=== PATIENT | female | born 1975 | race Caucasian/White ===

== ENCOUNTER 2017-11-12 08:48 | Emergency (ER) | payer MEDICAID ==
[2017-11-12] MEDS ORDERED: Ondansetron INJ* 2 MG/ML VIAL ONE ×2 (09:22)
[2017-11-12] MEDS ORDERED: Ondansetron INJ* 2 MG/ML VIAL IV ONE (09:23)
[2017-11-12 09:24] LABS: ABS Basophils 0 10^3/ul (0-0.2); ABS Eosinophils 0 10^3/ul (0-0.6); ABS Lymphocytes 2.3 10^3/ul (1.0-4.8); ABS Monocytes 0.7 10^3/ul (0-0.8); ABS Neutrophils 3.7 10^3/ul (1.5-7.7); ABS Nucleated RBC 0 10^3/ul; Eosinophil % 0.6 % (0-6); Hematocrit 40 % (35-47); Hemoglobin 13.8 g/dl (12.0-16.0); Lymphocyte % 34.3 % (25-47); Mean Corpuscular HGB Conc 35 g/dl (31-36); Mean Corpuscular Hemoglobin 33 pg (27-31); Mean Corpuscular Volume 94 fL (80-97); Mean Platelet Volume 9.1 um3 (7.4-10.4); Nucleated Red Blood Cells % 0; Platelet Count 200 10^3/ul (150-450); Red Cell Distribution Width 13 % (10.5-15); White Blood Count 6.7 10^3/ul (3.5-10.8)
--- NOTE | 2017-11-12 09:29 | RAD ---
Indication: Chest pain. Single frontal view of the chest performed at 0914 hours was reviewed. Comparison is made with previous exam dated May 05, 2013. No mediastinal shift is noted. Heart is of normal size and configuration. Lung perales appear clear. IMPRESSION: NO ACTIVE CARDIOPULMONARY DISEASE IS NOTED.
[2017-11-12 09:47] LABS: EGFR Non-African American 72.4 (>60)
[2017-11-12 12:27] LABS: Urine Appearance Cloudy; Urine Blood Negative (Negative); Urine Color Yellow; Urine Ketones Trace (Negative); Urine Protein Negative (Negative); Urine Specific Gravity 1.013 (1.010-1.030); Urine Urobilinogen Negative (Negative)
[2017-11-12 12:33] VITALS: BP 136/94
--- NOTE | 2017-11-15 07:45 | ED ---
Edis Butts Angela, scribed for Tien Bliss MD on 11/12/17 at 0913 . HPI Chest Pain - HPI Summary HPI Summary: This pt is a 42 y/o female presenting to [facility] referred by [facility] c/o chest pain x4 days. Pt reports recent travel to [place], she returned 4 days ago and noticed chest pain. She states she had two flights, one was 13 hours and the second one was 1.5 hours. She describes chest pain as pressure on top of her chest. She notes she feels like she can't catch her breath. Pt rates her chest pain 6 out of 10 in severity. She additionally notes nausea, fatigue, headache. Denies LE pain, calf pain. Pt is very stressed as she has 2 children with heart conditions, hypertrophic cardiomyopathy, who will eventually need a heart transplant. Her trip to [facility] was a "make a wish" trip. PMHx includes HTN. Denies drug, alcohol, and drug use. - History of Current Complaint Chief Complaint: EDChestPainROMI Time Seen by Provider: 11/12/17 09:04 Hx Obtained From: Patient Hx Last Menstrual Period: 2 wks ago Onset/Duration: Started Days Ago, Still Present Timing: Lasting Days Current Severity: Moderate Pain Intensity: 6 Pain Scale Used: 0-10 Numeric Chest Pain Location: Upper Sternal Chest Pain Radiates: No Character: Pressure/Squeezing - Pressure Aggravating Factor(s): Nothing Alleviating Factor(s): Nothing Associated Signs and Symptoms: Positive: Chest Pain, Headaches, Shortness of Breath, Nausea, Other: - POS: fatigue. Negative: Fever, Calf Pain/Swelling - Allergy/Home Medications Allergies/Adverse Reactions: Allergies Allergy/AdvReac Type Severity Reaction Status Date / Time No Known Allergies Allergy Verified 11/12/17 07:51 PMH/Surg Hx/FS Hx/Imm Hx Endocrine/Hematology History: Denies: Hx Diabetes, Hx Thyroid Disease Cardiovascular History: Reports: Hx Hypertension Respiratory History: Denies: Hx Asthma, Hx Chronic Obstructive Pulmonary Disease (COPD) GI History: Denies: Hx Ulcer, Other GI Disorders History: Reports: Hx Kidney Stones, Other Problems/Disorders - KIDNEY STONES, PYELONEPHRITUS, UTI'S Psychiatric History: Reports: Hx Anxiety - Surgical History Surgery Procedure, Year, and Place: Hx of kidney stones - surgiacal removal X2 Dr. [place]. appendectomy. cholycystecomy 2010. Plate left clavicle - 2000. RIGHT ORIF Hx Anesthesia Reactions: No Infectious Disease History: No Infectious Disease History: Reports: Traveled Outside the [place] in Last 30 Days Denies: Hx Clostridium Difficile, Hx Hepatitis, Hx Human Immunodeficiency Virus (HIV), Hx of Known/Suspected MRSA, Hx Shingles, Hx Tuberculosis - Family History Known Family History: Positive: Cardiac Disease - Mother: quad bypass at age 62 , Hypertension - Mother - Social History Alcohol Use: Rare Substance Use Type: Reports: None Smoking Status (MU): Former Smoker Review of Systems Positive: Fatigue. Negative: Fever, Chills Positive: Chest Pain Positive: Shortness Of Breath Positive: Nausea Genitourinary: Negative Negative: Edema, Other - LE or calf pain. Positive: Headache All Other Systems Reviewed And Are Negative: Yes Physical Exam - Summary Physical Exam Summary: VITAL SIGNS: Reviewed. GENERAL: Patient is a well-developed and nourished female who is lying comfortable in the stretcher. Patient is not in any acute respiratory distress. HEAD AND FACE: No signs of trauma. No ecchymosis, hematomas or skull depressions. No sinus tenderness. EYES: PERRLA, EOMI x 2, No injected conjunctiva, no nystagmus. EARS: Hearing grossly intact. Ear canals and tympanic membranes are within normal limits. MOUTH: Oropharynx within normal limits. NECK: Supple, trachea is midline, no adenopathy, no JVD, no carotid bruit, no c- spine tenderness, neck with full ROM. CHEST: Symmetric, no tenderness at palpation LUNGS: Clear to auscultation bilaterally. No wheezing or crackles. CVS: Regular rate and rhythm, S1 and S2 present, no murmurs or gallops appreciated. ABDOMEN: Soft, non-tender. No signs of distention. No rebound no guarding, and no masses palpated. Bowel sounds are normal. EXTREMITIES: FROM in all major joints, no edema, no cyanosis or clubbing. NEURO: Alert and oriented x 3. No acute neurological deficits. Speech is normal and follows commands. SKIN: Dry and warm PSYCH: Pt is anxious. Triage Information Reviewed: Yes Vital Signs On Initial Exam: Initial Vitals Temp Pulse Resp BP Pulse Ox 98.1 F 75 20 157/104 100 11/12/17 08:56 11/12/17 08:56 11/12/17 08:56 11/12/17 08:56 11/12/17 08:56 Vital Signs Reviewed: Yes Diagnostics - Vital Signs Vital Signs Temp Pulse Resp BP Pulse Ox 11/12/17 08:56 98.1 F 75 20 157/104 100 - Laboratory Result Diagrams: 11/12/17 09:17 11/12/17 09:17 Lab Statement: Any lab studies that have been ordered have been reviewed, and results considered in the medical decision making process. - Radiology Chest XR Xray Interpretation: No Acute Changes - IMPRESSION: No active cardiopulmonary disease is noted. Dr. Bliss has reviewed this radiology report. Radiology Interpretation Completed By: Radiologist - EKG 08:55 Cardiac Rate: NL EKG Rhythm: Sinus Rhythm - at 76 bpm EKG Interpretation: No ST elevations. EKG Comparison: No Significant Change - same as previous EKG. Chest Pain Course/Dx - Course Assessment/Plan: This pt is a 42 y/o female presenting to [facility] c/o chest pain x4 days. Pt reports recent travel to [place], she returned 4 days ago and noticed chest pain. She states she had two flights, one was 13 hours and the second one was 1.5 hours. She describes chest pain as pressure on top of her chest. She notes she feels like she can't catch her breath. Pt rates her chest pain 6 out of 10 in severity. She additionally notes fatigue, headache. Denies LE pain, calf pain. Pt has 2 children with heart conditions, hypertrophic cardiomyopathy. PMHx includes HTN. Denies drug, alcohol, and drug use. Test results without any significant abnormalities. Two troponins, 4 hours apart, are both 0.00. Urinalysis is negative for UTI. Monoscreen is negative. Influenza A and B are both negative. Rapid strep is negative. Chest XR: No active cardiopulmonary disease is noted. EKG show normal sinus rhythm with no ST elevations. In the ED course the pt was given Zofran for the nausea. Therefore she will be discharged to home with follow up from her PCP. I discussed all the findings and test results with the patient. All questions were answered to patient satisfaction. There were no further complaints or concerns. She is instructed to return to the ED for any worsening or new symptoms. Pt is hemodynamically stable, alert and oriented x3. - Diagnoses Provider Diagnoses: Atypical chest pain Discharge - Sign-Out/Discharge Documenting (check all that apply): Discharge - discharge to home - Discharge Plan Condition: Stable Disposition: HOME Patient Education Materials: Chest Pain (ED) Referrals: Chastity Vicente MD [Primary Care Provider] - 3 Days Additional Instructions: Please follow up with your primary care provider. RETURN TO THE ED FOR ANY NEW OR WORSENING SYMPTOMS. The documentation as recorded by the Edis webster Angela accurately reflects the service I personally performed and the decisions made by Izaiah pedro Walter, MD.
== END 2017-11-12 12:32 | disposition home or self-care (01) ==
LOC: ED 08:48
DX: R07.89 Other chest pain (principal); R51 Headache; R06.02 Shortness of breath; R11.0 Nausea; R53.83 Other fatigue
CPT/HCPCS: 36415; 71045; 80053; 81003; 82550; 82553; 83735; 83880; 84436; 84443; 84484; 85025; 85379; 85730; 86308; 87502; 87651; 93005; 96374; 96375; 99283; J2405